=== PATIENT | male | born 1985 | race Caucasian/White ===

== ENCOUNTER 2017-11-11 08:26 | Emergency (ER) | payer OTHER ==
[2017-11-11 08:36] VITALS: TEMP 98.2
[2017-11-11 10:16] VITALS: BP 109/61; PULSE 71; RESP 12; O2SAT 100
== END 2017-11-11 09:36 | disposition home or self-care (01) | DRG 605 ==
LOC: ED 08:26
DX: S20.219A Contusion of unspecified front wall of thorax, initial encounter (principal)
CPT/HCPCS: 71045; 99282; 99283; G0390